=== PATIENT | male | born 1975 | race African-American/Black ===

== ENCOUNTER 2020-01-11 22:02 | Emergency (ER) | payer MEDICAID ==
[~2020-01-11] VITALS: Ht 175.3 cm; Wt 93.4 kg
[2020-01-11 22:52] VITALS: BP 145/82
[2020-01-11 23:46] LABS: Basophils # (auto) 0.1 10 ^3/uL (0-0.2); Basophils % (auto) 1.1 % (0.0-2.0); Eosinophils # (auto) 0.4 10 ^3/uL (0-0.8); Eosinophils % (auto) 4.6 % (0.0-7.0); Hematocrit 45.4 % (41.0-53.0); Hemoglobin 15.7 g/dL (13.5-17.5); Lymphocytes # (auto) 1.8 10 ^3/uL (0.4-5.4); Lymphocytes % (auto) 20.1 % (10.0-50.0); Mean Corpuscular Hemoglobin 31.4 pg (28.0-32.0); Mean Corpuscular Hgb Conc. 34.5 g/dL (32.0-36.0); Mean Corpuscular Volume 90.9 fL (80.0-100.0); Monocytes # (auto) 0.8 10 ^3/uL (0-1.3); Monocytes % (auto) 8.6 % (0.0-12.0); Neutrophils # (auto) 5.8 10 ^3/uL (1.6-8.6); Neutrophils % (auto) 65.6 % (37.0-80.0); Platelet Count (auto) 201 10^3/uL (140-450); Red Blood Cells 4.99 10^6/uL (4.5-5.90); Red Cell Distribution Width 14.3 % (11.8-14.3); White Blood Cell 8.8 10^3/uL (4.4-10.8)
[2020-01-12 00:07] LABS: Albumin 3.7 g/dL (3.4-5.0); Blood Urea Nitrogen 8 mg/dL (7-18); Calcium 8.8 mg/dL (8.5-10.1); Chloride 108 mmol/L (98-107); Sodium 140 mmol/L (136-145)
[2020-01-12 00:09] LABS: Anion Gap 7 (5-15); BUN/Creatinine Ratio 8.3; Carbon Dioxide 25 mmol/L (21-32); GFR African American 109 mL/min; GFR Non-African American 90 mL/min; Glucose 97 mg/dL (74-106); Magnesium 2.2 mg/dL (1.6-2.6)
[2020-01-12 00:18] LABS: Alanine Aminotransferase 54 U/L (16-61); Alkaline Phosphatase 62 U/L (45-117); Aspartate Aminotransferase 33 U/L (15-37); Bilirubin, Total 0.4 mg/dL (0.2-1.0); Total Protein 7.9 g/dL (6.4-8.2)
[2020-01-12] MEDS ORDERED: IBUPROFEN 800 MG TAB PO ONE ×2 (02:37→02:45)
== END 2020-01-12 02:49 | disposition home or self-care (01) ==
LOC: ER 22:05
DX: R07.89 Other chest pain (principal); I10 Essential (primary) hypertension; E78.5 Hyperlipidemia, unspecified; Z90.49 Acquired absence of other specified parts of digestive tract
CPT/HCPCS: 36415; 71045; 80053; 83735; 84484; 85025; 93005